=== PATIENT | male | born 1985 | race Caucasian/White ===

== ENCOUNTER 2016-09-25 13:38 | Emergency (ER) | payer SELFPAY ==
--- NOTE | 2016-09-25 14:22 | ED Physician Chart ---
Chief Complaint/HPI - Patient Information Date Seen:: 09/25/16 Time Seen:: 02:00 Chief Complaint:: Foreign body sensation in his esophagus since last evening. History of Present Illness:: Pt is Martiniquais speaking. Interpretation is provided by his stepdaughter Saida per pt's request. Pt has developed the sensation of food being stuck in his esophagus after he swallowed a big slice of apple in a hurry without adequate chewing at about 11 pm last evening. No pain. No N/V. Pt has been taking po well without N/V/D. Pt had bread, salad, and water earlier at about 11 am today without regurgitation, N/V/D. No fever. No dyspnea. No abdominal pain or discomfort. Last BM at about noon today, normal in color and consistency. No hematochezia or melena. Allergies:: Allergies Allergy/AdvReac Type Severity Reaction Status Date / Time No Known Allergies Allergy Verified 09/25/16 13:46 Vitals:: Vital Signs - 8 hr 09/25/16 13:46 Temp 98.9 F HR 74 RR 16 BP 119/81 O2 Sat % 98 Historian:: Patient Family MD/PCP:: Unknown LMP:: N/A Review:: Nurse's Note Reviewed Review of Systems - Review of Systems General/Constitutional: No fever, No chills, No weight loss, No weakness, No diaphoresis, No edema, No loss of appetite Skin: No skin lesions, No rash, No bruising Neck: No neck pain, No swelling, No thyromegaly, No stiffness, No mass noted Cardio Vascular: No chest pain, No palpitations, No edema Pulmonary: No SOB, No cough, No sputum, No wheezing GI: No nausea, No vomiting, No diarrhea, No pain, No melena, No hematochezia, No constipation, No hematemesis Musculoskeletal: No bone or joint pain, No back pain, No muscle pain Psychiatric: No prior psych history Hematopoietic: No bruising, No lymphadenopathy Neurological: No syncope, No focal symptoms, No weakness, No paresthesia, No headache, No confusion Past Medical History - Past Medical History Past Medical History: No significant medical hx Family History: Diabetes Melitus (mother) Social History: Non Smoker, No Alcohol, No Drug Use, , Other (lives with his .) 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 Surgical History: None Psychiatricy History: None Medication: None Family Medical History - Family Member Mother Ethnicity: Living Status: Still Living Hx Family Diabetes: Yes Physical Exam - Physical Examination General/Constitutional: Awake, Well-developed, well-nourished, Alert, No distress, GCS 15, Non-toxic appearing, Ambulatory Other Gen/Cons comments:: Breathes comfortably, speaks clearly, and ambulates without difficulty. Head: Atraumatic Eyes: Lids, conjuctiva normal, PERRL, EOMI Skin: Nl inspection, No rash, No skin lesions, No ecchymosis, Well hydrated, No lymphadenopathy ENMT: External ears, nose nl, Nasal exam nl, Lips, teeth, gums nl, Oropharynx nl , Tonsils nl Neck: Nontender, Full ROM w/o pain, No nuchal rigidity, No mass, No stridor Respiratory: Nl effort/Exclusion, Clear to Auscultation, No Wheeze/Rhonchi/Rales Cardio Vascular: RRR, No murmur, gallop, rubs GI: No tenderness/rebounding/guarding, No organomegaly, No hernia, Normal BS's, Nondistended, No mass/bruits Other GI comments:: Abdomen is soft. Extremities: No tenderness or effusion, Full ROM, normal strength in all extremities, No edema Neuro/Psych: Alert/oriented (oriented x 3), Judgement/insight normal, Mood normal, Normal gait, No focal deficits ED Septic Shock - . Is Septic Shock (SBP<90, OR Lactate>4 mmol\L) present?: No - <6hrs of presentation: Vital Signs: Vital Signs - 8 hr 09/25/16 13:46 Temp 98.9 F HR 74 RR 16 BP 119/81 O2 Sat % 98 Reassessment (Disposition) - Reassessment Reassessment:: 1444 Pt remains stable, smiling, and appears to be comfortable. Pt has been tolerating po intake without N/V or discomfort. Discussed with pt at length. Pt requests to go home now and does not want further observation/management in hospital. Aftercare instructions have been given. Interpretation by his stepdaughter Saida. Reassessment Condition:: Improved - Diagnosis Diagnosis:: Probable local esphageal irriation from swallowing excessively large piece of food particle. Stable and improved. - Aftercare/Follow up Instructions Aftercare/Follow-Up Instructions:: Refer to Discharge Instructions Notes:: Clear liquid diet today. Pt has been instructed to chew well before swallowing. F/U with Dr. Melton or PCP of pt's choice in one day for recheck. Return to ER immediately if condition worsens or if any sign/symptoms of obstruction develop. Medication Prescribed:: None - Patient Disposition Discharge/Transfer:: Home Time:: 14:45 Condition at Disposition:: Stable, Improved
== END 2016-09-25 14:51 | disposition home or self-care (01) ==
LOC: ER 13:38
DX: T18.128A Food in esophagus causing other injury, initial encounter (principal); X58.XXXA Exposure to other specified factors, initial encounter; Y93.89 Activity, other specified; Y92.89 Other specified places as the place of occurrence of the external cause; Y99.8 Other external cause status
CPT/HCPCS: Z7502